=== PATIENT | male | born 1945 | race Caucasian/White ===

== ENCOUNTER 2018-11-05 11:18 | Emergency (ER) | payer BC ==
[~2018-11-05] VITALS: Ht 172.7 cm; Wt 73.0 kg
[2018-11-05] MEDS ORDERED: HYDROCODONE/ACETAMINOPHEN 5/325MG TABLET PO STA (11:53)
[2018-11-05] MEDS ORDERED: TETANUS, DIPHTHERIA, PERTUSSIS VAC/PF 0.5ML (>7YR OLD) IM ONE (12:00)
[2018-11-05 12:19] LABS: HEMATOCRIT. 40.8 % (42.0-52.0); MEAN CORPUSCULAR HEMOGLOBIN 28.8 pg (28.0-32.0); MEAN CORPUSCULAR VOLUME 83.9 fL (80.0-94.0); MEAN PLATELET VOLUME 7.6 fl (7.4-10.4); PLATELET 244 x1000/uL (130-400); RED BLOOD CELL COUNT 4.86 mill/uL (4.7-6.1); RED CELL DISTRIBUTION WIDTH 14.1 % (11.6-14.6)
[2018-11-05 12:26] LABS: CHLORIDE 110 mEq/L (98-107)
[2018-11-05 13:44] LABS: PLATELET ESTIMATE NORMAL
[2018-11-05] MEDS ORDERED: IBUPROFEN 600MG TABLET PO ONE (14:00)
[2018-11-05 16:42] VITALS: BP 141/84
== END 2018-11-05 16:52 | disposition home or self-care (01) ==
LOC: ER 11:18
DX: S56.415A Strain of extensor muscle, fascia and tendon of right ring finger at forearm level, initial encounter (principal); S61.402A Unspecified open wound of left hand, initial encounter; I10 Essential (primary) hypertension; S61.401A Unspecified open wound of right hand, initial encounter; Y08.89XA Assault by other specified means, initial encounter; Y93.9 Activity, unspecified; Y92.9 Unspecified place or not applicable; Z88.0 Allergy status to penicillin
CPT/HCPCS: 36415; 71045; 73130; 84484; 90471; 90715; 93005; 99284

== ENCOUNTER 2018-11-07 09:54 | Emergency (ER) | payer BC ==
[~2018-11-07] VITALS: Ht 165.1 cm; Wt 70.0 kg
[2018-11-07] MEDS ORDERED: MORPHINE SULFATE 4 MG/ML CPJ (NOT FOR IM USE) IV STA (10:24)
[2018-11-07 11:03] LABS: HEMATOCRIT. 39.7 % (42.0-52.0); HEMOGLOBIN. 13.4 g/dL (14.0-18.0); MEAN CORPUSCULAR HEMOGLOBIN 28.6 pg (28.0-32.0); MEAN CORPUSCULAR VOLUME 84.4 fL (80.0-94.0); PLATELET 253 x1000/uL (130-400); RED CELL DISTRIBUTION WIDTH 14.2 % (11.6-14.6)
[2018-11-07 11:10] LABS: CHLORIDE 106 mEq/L (98-107)
[2018-11-07 11:12] LABS: PROTHROMBIN TIME 10.1 sec (9.6-11.0)
[2018-11-07 11:36] LABS: CLARITY URINE CLOUDY (CLEAR); COLOR URINE YELLOW (YELLOW); KETONES URINE 2+ (NEGATIVE); LEUKOCYTE ESTERASE URINE NEGATIVE (NEGATIVE); NITRITE URINE NEGATIVE (NEGATIVE); OCCULT BLOOD URINE NEGATIVE (NEGATIVE); PH URINE 8.5 (4.5-8.0); PROTEIN URINE NEGATIVE (NEGATIVE); SPECIFIC GRAVITY URINE 1.019 (1.005-1.030)
[2018-11-07 12:13] VITALS: BP 129/69
[2018-11-07 12:28] LABS: PLATELET ESTIMATE NORMAL
== END 2018-11-07 12:13 | disposition home or self-care (01) ==
LOC: ER 10:09
DX: R10.9 Unspecified abdominal pain (principal); I10 Essential (primary) hypertension; Z88.0 Allergy status to penicillin
CPT/HCPCS: 36415; 74176; 80053; 81003; 83690; 85025; 85610; 93005; 96374; 99284; J2270